=== PATIENT | female | born 1990 | race Caucasian/White ===

== ENCOUNTER 2023-12-31 21:16 | Emergency (ER) | payer BC, SELFPAY ==
[2023-12-31 21:17] VITALS: BP 152/104
[2023-12-31] MEDS: ADRENALIN 0.3 MG IM (21:29)
[2023-12-31 21:30] VITALS: BP 145/99
--- NOTE | 2023-12-31 21:30 | ED.GENMED ---
History of Present Illness
General
Chief Complaint: Allergic Reaction
Source: patient and spouse
Exam Limitations: none
Time Seen by Provider: 12/31/23 21:29
Nursing documentation reviewed up to this point in time: agreed with
History of Present Illness
History of Present Illness:
33-year-old female presents emergency ferment due to tongue swelling. She is allergic to peanuts tree nuts and had dessert at [facility]. Her tongue got itchy and started to swell. She then took 50 mg of Benadryl. Of note she does
have an EpiPen.
Past History
Past History
ED Past Medical History: Psychiatric (Anxiety and depression) and Other (Endometriosis)
ED Past Surgical History: Other (Laparoscopy)
Social History
Tobacco: Non-smoker
Review of Systems
Review of Systems
Allergies reviewed?: Yes
All Other Systems: Not applicable
Constitutional: Reports no symptoms
EENT: Reports mouth swelling
Respiratory: Reports no symptoms
Cardiac: Reports no symptoms
ABD/GI: Reports no symptoms
: Reports no symptoms
Musculoskeletal: Reports no symptoms
Skin: Reports no symptoms
Neurological: Reports no symptoms
Endocrine: Reports no symptoms
Hematologic/Lymphatic: Reports no symptoms
Psychiatric: Reports no symptoms
Phy Exam
Physical Exam
Physical Exam:
Physical Exam
General: no apparent distress, not acutely ill
Neck: supple. no meningeal signs. normal posterior pharynx
Heart: s1/s2 regular rate and rhythm, no murmur. equal radial
pulses.
HEENT: Pupils equal round reactive to light, EOMI, left-sided tongue swelling
Lungs: no acute respiratory distress. clear bilaterally
Abdomen: normal bowel sounds. not tender. no CVAT
Neuro: alert and oriented. no focal neurological deficits cranial nerves II through XII intact
Skin: no rash
Psychiatric: well kept. interactive and cooperative
Extremities: no edema. no calf tenderness. negative homans. good distal pulses
Course
Orders/Labs/Results
Orders:
Orders
12/31/23 21:23
EPINEPHrine PF [Adrenalin] 1 mg .ROUTE .STK-MED ONE
12/31/23 21:28
EPINEPHrine PF [Adrenalin] 0.3 mg IM NOW STA
Vital Signs
Initial and Last Documented VS:
Initial Vital Signs
Temp Pulse Resp BP Pulse Ox
98.1 F 116 17 152/104 97
12/31/23 21:17 12/31/23 21:17 12/31/23 21:17 12/31/23 21:17 12/31/23 21:17
Last Documented Vital Signs
Temp Pulse Resp BP Pulse Ox
98.1 F 100 12 145/99 97
12/31/23 21:17 12/31/23 21:45 12/31/23 21:45 12/31/23 21:30 12/31/23 21:45
MDM/Problems Addressed
Differential Diagnosis Includes:
Angioedema, anaphylaxis
MDM/Problems Addressed:
33-year-old female with anaphylaxis, angioedema of tongue. Improved with epinephrine injection. Will observe patient, and if she continues to improve, will discharge. Patient has EpiPen at home.
Chronic conditions affecting care: Other (Anaphylaxis)
Acute Exacerbation and/or Progression of Chronic Illness: Other (Anaphylaxis)
*Critical Care Note
Total Time (30-74mins, 75-104mins- exclusive of procedures): 30
comment:
Critical care statement: A total of 30 minutes of critical care time was provided for this patient. This includes management of unstable vital signs, evaluation of the patient at bedside, reviewing the patient's pertinent medical records, discussion
with consultants, review of old EKGs and review of pertinent medical records. This time with separate from time utilized to perform the aforementioned documented procedures
Patient Management
Social determinants of health affecting care: Living situation and Strong social support
Escalation/DeEscalation of care consider admission/obs:
Admit not indicated
ED Attending Note
-
Portions of this chart may have been created with voice recognition software.� Occasional wrong word or��sound alike� substitutions may have occurred due to the inherent limitations of voice recognition software.
Discharge Plan
Departure
Patient with high blood pressure during this ER visit?: Yes
Condition: Good
Discharge Problem:
Anaphylaxis
Instructions: Anaphylaxis, BLOOD PRESSURE
Prescriptions:
No Action
vilazodone [Viibryd] 40 MG tablet
40 mg PO DAILY
Combi Patch
topical .TWICEWEEKLY
epinephrine 0.3 MG/0.3 ML auto-injector
0.3 mg IM ONCE PRN (Reason: allergic reaction) Qty: 1 1RF
Referrals:
Mis Lenz DO [Family Provider] - Call in 1-3 days for appt
Interventions
Interventions:
*Risk Screen - Suicide Last Done: 12/31/23 21:32
*General Assessment Last Done: 12/31/23 21:32
*Neglect/Abuse Screening Last Done: 12/31/23 21:32
*ED COVID-19 Vaccine History Last Done: 12/31/23 21:32
ED- Cardiac Assessment Last Done: 12/31/23 21:34
ED- Pulmonary Assessment Last Done: 12/31/23 21:34
ED-Skin Assessment Last Done: 12/31/23 21:34
Discharge Date and Time
Print Language: NEPALI
[2023-12-31 22:00] VITALS: BP 142/94
[2023-12-31 23:39] VITALS: BP 115/64
[2023-12-31 23:48] VITALS: BP 115/64
== END 2023-12-31 23:54 | disposition home or self-care (01) ==
LOC: EMR 21:16
PROVIDERS: EMERGENCY PHYSICIAN Emergency Medicine; FAMILY PHYSICIAN Family Medicine
DX: T78.01XA Anaphylactic reaction due to peanuts, initial encounter (principal); Y92.9 Unspecified place or not applicable; F41.8 Other specified anxiety disorders; N80.9 Endometriosis, unspecified; Z91.010 Allergy to peanuts
CPT/HCPCS: 99282; 96372